=== PATIENT | male | born 1985 | race Caucasian/White ===

== ENCOUNTER 2019-02-23 09:01 | Emergency (ER) | payer OTHER, SELFPAY ==
[2019-02-23 09:06] VITALS: BP 157/108; PULSE 106; RESP 18; TEMP 36.7; O2SAT 100
--- NOTE | 2019-02-23 09:09 | ED.SKABFB ---
HPI - Skin/Abscess/Foreign Bdy General Chief complaint: Skin/Abscess/Foreign Body Stated complaint: Cyst on backside/unable to sit Time Seen by Provider: 02/23/19 09:02 Source: patient Mode of arrival: ambulatory Limitations: no limitations History of Present Illness HPI narrative: Patient is a 33-year-old male here for evaluation of what he states is a cyst on his right buttocks. He states that he has had this in the past several years ago. He was given an antibiotic which he states was penicillin which resolved the symptoms. After period of time being symptom-free the symptoms returned again. He states he was given another course of antibiotics which again resolved the symptoms. This again was several years ago. He reports that this episode is very similar to these 2 prior episodes. He is currently on day 3 of an antibiotic which he states is penicillin but is not exactly sure if this is the name of the medicine that he is on. He comes the emergency department today because he feels like the antibiotics are not working and has quite a bit of pain with sitting. Related Data Home Medications Medication Instructions Recorded Confirmed doxycycline hyclate 100 mg PO BID 02/23/19 02/23/19 Allergies Allergy/AdvReac Type Severity Reaction Status Date / Time No Known Drug Allergies Allergy Verified 02/23/19 09:08 Review of Systems Constitutional Denies fever(s) Gastrointestinal Gastrointestinal: Denies abdominal pain, Denies change in stool character, Denies nausea and Denies vomiting Comments: Cyst on his buttocks Musculoskeletal Denies myalgias and Denies arthralgias Integumentary/Breasts Comments: Redness and swelling to the right buttocks Neurologic Denies behavioral changes Psychiatric Denies behavioral changes Allergic/Immunologic Denies urticaria [facility] Medical History Patient denies medical problems (Acute) Surgical History History of repair of ACL (Acute) Social History Smoking Status: Never smoker Social History Smoking Status: Never smoker Exam Initial Vital Signs Initial Vital Signs: Vital Signs Temperature 98.1 F 02/23/19 09:06 Pulse Rate 106 H 02/23/19 09:06 Respiratory Rate 18 02/23/19 09:06 Blood Pressure 157/108 H 02/23/19 09:06 Pulse Oximetry 100 02/23/19 09:06 Const General: cooperative, comfortable, well developed, well groomed and No acute distress Orientation: alert and awake Resp Effort & Inspection: normal respiratory effort Cardio Rate: tachycardic GI Other: Patient with redness and swelling to the perianal region of the right buttocks Skin Other: Patient with a approximately 10-15 cm area of redness to the right buttocks just lateral to the anus. Does have approximately 1 cm area of abscess on the skin. Has induration. Neuro General: alert and awake Cognition: normal cognition Speech: speech normal Extrem General: normal to inspection and capillary refill normal Psych Appearance: grossly normal and well kempt Procedures Abscess I/D Site: other (Perianal) Side (if applicable): right Sedation/analgesia: none Local Anesthetic: lidocaine 1% Amount of anesthesia used (mL): 6 Technique: incised with #11 blade Irrigation: No Packing used?: iodoform Course Orders Ordered: ED Orders 02/23/19 09:08 CT pelvis w con Stat 02/23/19 09:15 Basic Metabolic Panel Stat Complete Blood Count AUTO DIFF Stat Discontinued Medications Sodium Chloride (Normal Saline 0.9%) 1,000 mls @ 1,000 mls/hr IV BOLUS ONE Stop: 02/23/19 10:07 Last Admin: 02/23/19 09:20 Dose: 1,000 mls/hr Lidocaine HCl (Xylocaine 1% (Pf)) 6 ml INJ NOW ONE Stop: 02/23/19 09:58 Vital Signs - 8 hr 02/23/19 09:06 02/23/19 09:45 Temperature 98.1 F Pulse Rate 106 H 98 H Respiratory Rate 18 16 Blood Pressure 157/108 H Blood Pressure [Right Arm] 139/89 Pulse Oximetry 100 100 MDM - Skin/Abscess/Foreign Bdy Lab Data Attestation: I reviewed the patient's lab results. Result diagrams: 02/23/19 09:15 02/23/19 09:15 Lab Results 02/23/19 02/23/19 Range/Units 09:15 09:15 WBC 13.3 H (4.5-11.0) X10^3/uL RBC 5.07 (4.5-5.9) X10^6/uL Hgb 15.5 (13.5-17.5) g/dL Hct 45.7 (41-53) % MCV 90.3 (80-100) fL MCH 30.5 (26-34) PG MCHC 33.8 (30-36) % RDW 13.2 (11.6-14.8) % Plt Count 157 (150-400) X10^3/uL Neut % (Auto) 77.0 H (50-75) % Lymph % (Auto) 11.8 L (25-40) % [place] % (Auto) 8.9 (3-14) % Eos % (Auto) 2.0 (2-4) % Baso % (Auto) 0.3 (0-2) % Neut # (Auto) 38494 H (6232-9756) /uL Lymph # (Auto) 1600 (3041-3426) /uL [place] # (Auto) 1200 H (0-900) /uL Eos # (Auto) 300 (0-450) /uL Baso # (Auto) 0 (0-100) /uL Sodium 138 (137-145) mmol/L Potassium 5.6 H (3.4-5.1) mmol/L Chloride 103 (98-107) mmol/L Carbon Dioxide 19 L (22-32) mmol/L BUN 12 (9-20) mg/dL Creatinine 0.90 (0.66-1.25) mg/dL Estimated GFR > 60.0 (>60) mL/min BUN/Creatinine Ratio 13.3 (6-22) Glucose 94 (70-100) mg/dL Calcium 9.6 (8.4-10.2) mg/dL Imaging Data CT pelvis: Radiologist's impression: [place] [address] CT Scan Report Signed Patient: Shilo Carnes [facility]#: [id number] : 1985Acct:[id number] Age/Sex: 33 / MDate of Service: 02/23/19 Loc: ED Accession Number: [id number] Procedure: CT pelvis w con Ordering Provider: Fernando Estrada D.O. PROCEDURE: CT PELVIS W CON INDICATIONS: eval for R perianal/rectal abscess TECHNIQUE: After the administration of intravenous contrast, 5 mm thick sections acquired from the iliac crests to the symphysis. 5 mm coronal and sagittal reformats were acquired. For radiation dose reduction, the following was used: automated exposure control, adjustment of mA and/or kV according to patient size. COMPARISON: None. FINDINGS: Image quality: Excellent. Peritoneum and bowel: Bowel loops demonstrate normal wall thickness and caliber. No free fluid or air. Incidental note is made of a normal-appearing appendix. Genitourinary: Bladder wall thickness is normal. Nodes and vessels: No iliac, pelvic, or inguinal adenopathy by size criteria. Iliac vessels demonstrate normal size and enhancement. Bones: No suspicious bony lesions. Miscellaneous: There are bilateral fat containing inguinal hernias. There is a mildly rim enhancing right medial gluteal abscess seen that measures 5.1 x 2.5 cm in greatest axial dimension, with a craniocaudal extent of 6 cm. There is moderate surrounding inflammatory change seen. This abscess is seen within the subcutaneous fat, although there is a portion of the abscess that is seen extending adjacent to the anus, which is demonstrated on series 3 image 46. IMPRESSION: 6 cm medial right gluteal abscess, which extends towards the anus. Incidental note is made of: Bilateral fat containing inguinal hernias Normal appendix Dictated by: Jerel Adamson M.D. on 02/23/2019 at 8:45 Approved by: Jerel Adamson M.D. on 02/23/2019 at 8:48 MDM Narrative Medical decision making narrative: Patient was able to find out that he is currently on doxycycline. He is on day 3 of this. This would be an appropriate antibiotic for an abscess with cellulitis. Patient states he now remembers that he has had another abscess that needed drained on his back several years ago. CT scan does show a gluteal abscess. This was I indeed here in the ER with an abundance amount of purulent material. Packing was placed due to the size of the cavity that was left. It was covered with bandages. Patient is nontoxic appearing. No indication for IV antibiotics. No indication for admission to the hospital. Will have him continue his oral antibiotics. He was given care instructions with regard to the packing and also the bandages. He expressed understanding and agreement with plan. Discharge Plan Departure Patient Disposition: Home Clinical Impression: Abscess of anal and rectal regions Instructions: DI for Anal Abscess, DI for Incision and Drainage of a Skin Abscess Activity Restrictions/Additional Instructions: You need to continue the antibiotic that your currently taking as directed until the medication is gone. Expect some oozing from the incision that we did here in the ER. If it starts to bleed then please return to the emergency department for further evaluation. You can shower like normal using soap and water. You can have bowel movements like normal. When you wipe after a bowel movement tried to take care not to pull out the packing. Try to keep the packing in for the next 48 hours. At that time you can pull it out on her own. Just grabbed the end that is sticking out and pole on it until all of the packing is removed. It should come out in 1 piece. Continue to cover the wound until it quit draining. You can contact [phone] to talk with the health resources coordinator here at the hospital to help establish a primary provider. Return to the emergency department for any new or worsening symptoms Prescriptions: No Action doxycycline hyclate 100 mg Capsule 100 mg PO BID RF: 0
--- NOTE | 2019-02-23 09:12 | ED_ITS ---
HPI - Skin/Abscess/Foreign Bdy General Chief complaint: Skin/Abscess/Foreign Body Stated complaint: Cyst on backside/unable to sit Time Seen by Provider: 02/23/19 09:02 Source: patient Mode of arrival: ambulatory Limitations: no limitations History of Present Illness HPI narrative: Patient is a 33-year-old male here for evaluation of what he states is a cyst on his right buttocks. He states that he has had this in the past several years ago. He was given an antibiotic which he states was penicillin which resolved the symptoms. After period of time being symptom-free the symptoms returned again. He states he was given another course of antibiotics which again resolved the symptoms. This again was several years ago. He reports that this episode is very similar to these 2 prior episodes. He is currently on day 3 of an antibiotic which he states is penicillin but is not exactly sure if this is the name of the medicine that he is on. He comes the emergency department today because he feels like the antibiotics are not working and has quite a bit of pain with sitting. Related Data Home Medications Medication Instructions Recorded Confirmed doxycycline hyclate 100 mg PO BID 02/23/19 02/23/19 Allergies Allergy/AdvReac Type Severity Reaction Status Date / Time No Known Drug Allergies Allergy Verified 02/23/19 09:08 Review of Systems Constitutional Denies fever(s) Gastrointestinal Gastrointestinal: Denies abdominal pain, Denies change in stool character, Denies nausea and Denies vomiting Comments: Cyst on his buttocks Musculoskeletal Denies myalgias and Denies arthralgias Integumentary/Breasts Comments: Redness and swelling to the right buttocks Neurologic Denies behavioral changes Psychiatric Denies behavioral changes Allergic/Immunologic Denies urticaria [facility] Medical History Patient denies medical problems (Acute) Surgical History History of repair of ACL (Acute) Social History Smoking Status: Never smoker Social History Smoking Status: Never smoker Exam Initial Vital Signs Initial Vital Signs: Vital Signs Temperature 98.1 F 02/23/19 09:06 Pulse Rate 106 H 02/23/19 09:06 Respiratory Rate 18 02/23/19 09:06 Blood Pressure 157/108 H 02/23/19 09:06 Pulse Oximetry 100 02/23/19 09:06 Const General: cooperative, comfortable, well developed, well groomed and No acute distress Orientation: alert and awake Resp Effort & Inspection: normal respiratory effort Cardio Rate: tachycardic GI Other: Patient with redness and swelling to the perianal region of the right buttocks Skin Other: Patient with a approximately 10-15 cm area of redness to the right buttocks just lateral to the anus. Does have approximately 1 cm area of abscess on the skin. Has induration. Neuro General: alert and awake Cognition: normal cognition Speech: speech normal Extrem General: normal to inspection and capillary refill normal Psych Appearance: grossly normal and well kempt Procedures Abscess I/D Site: other (Perianal) Side (if applicable): right Sedation/analgesia: none Local Anesthetic: lidocaine 1% Amount of anesthesia used (mL): 6 Technique: incised with #11 blade Irrigation: No Packing used?: iodoform Course Orders Ordered: ED Orders 02/23/19 09:08 CT pelvis w con Stat 02/23/19 09:15 Basic Metabolic Panel Stat Complete Blood Count AUTO DIFF Stat Discontinued Medications Sodium Chloride (Normal Saline 0.9%) 1,000 mls @ 1,000 mls/hr IV BOLUS ONE Stop: 02/23/19 10:07 Last Admin: 02/23/19 09:20 Dose: 1,000 mls/hr Lidocaine HCl (Xylocaine 1% (Pf)) 6 ml INJ NOW ONE Stop: 02/23/19 09:58 Vital Signs - 8 hr 02/23/19 09:06 02/23/19 09:45 Temperature 98.1 F Pulse Rate 106 H 98 H Respiratory Rate 18 16 Blood Pressure 157/108 H Blood Pressure [Right Arm] 139/89 Pulse Oximetry 100 100 MDM - Skin/Abscess/Foreign Bdy Lab Data Attestation: I reviewed the patient's lab results. Result diagrams: 02/23/19 09:15 02/23/19 09:15 Lab Results 02/23/19 02/23/19 Range/Units 09:15 09:15 WBC 13.3 H (4.5-11.0) X10^3/uL RBC 5.07 (4.5-5.9) X10^6/uL Hgb 15.5 (13.5-17.5) g/dL Hct 45.7 (41-53) % MCV 90.3 (80-100) fL MCH 30.5 (26-34) PG MCHC 33.8 (30-36) % RDW 13.2 (11.6-14.8) % Plt Count 157 (150-400) X10^3/uL Neut % (Auto) 77.0 H (50-75) % Lymph % (Auto) 11.8 L (25-40) % [place] % (Auto) 8.9 (3-14) % Eos % (Auto) 2.0 (2-4) % Baso % (Auto) 0.3 (0-2) % Neut # (Auto) 42188 H (4555-9573) /uL Lymph # (Auto) 1600 (4953-3981) /uL [place] # (Auto) 1200 H (0-900) /uL Eos # (Auto) 300 (0-450) /uL Baso # (Auto) 0 (0-100) /uL Sodium 138 (137-145) mmol/L Potassium 5.6 H (3.4-5.1) mmol/L Chloride 103 (98-107) mmol/L Carbon Dioxide 19 L (22-32) mmol/L BUN 12 (9-20) mg/dL Creatinine 0.90 (0.66-1.25) mg/dL Estimated GFR > 60.0 (>60) mL/min BUN/Creatinine Ratio 13.3 (6-22) Glucose 94 (70-100) mg/dL Calcium 9.6 (8.4-10.2) mg/dL Imaging Data CT pelvis: Radiologist's impression: [place] [address] CT Scan Report Signed Patient: Shilo Carnes [facility]#: [id number] : 1985Acct:[id number] Age/Sex: 33 / MDate of Service: 02/23/19 Loc: ED Accession Number: [id number] Procedure: CT pelvis w con Ordering Provider: Fernando Estrada D.O. PROCEDURE: CT PELVIS W CON INDICATIONS: eval for R perianal/rectal abscess TECHNIQUE: After the administration of intravenous contrast, 5 mm thick sections acquired from the iliac crests to the symphysis. 5 mm coronal and sagittal reformats were acquired. For radiation dose reduction, the following was used: automated exposure control, adjustment of mA and/or kV according to patient size. COMPARISON: None. FINDINGS: Image quality: Excellent. Peritoneum and bowel: Bowel loops demonstrate normal wall thickness and caliber. No free fluid or air. Incidental note is made of a normal-appearing appendix. Genitourinary: Bladder wall thickness is normal. Nodes and vessels: No iliac, pelvic, or inguinal adenopathy by size criteria. Iliac vessels demonstrate normal size and enhancement. Bones: No suspicious bony lesions. Miscellaneous: There are bilateral fat containing inguinal hernias. There is a mildly rim enhancing right medial gluteal abscess seen that measures 5.1 x 2.5 cm in greatest axial dimension, with a craniocaudal extent of 6 cm. There is moderate surrounding inflammatory change seen. This abscess is seen within the subcutaneous fat, although there is a portion of the abscess that is seen extending adjacent to the anus, which is demonstrated on series 3 image 46. IMPRESSION: 6 cm medial right gluteal abscess, which extends towards the anus. Incidental note is made of: Bilateral fat containing inguinal hernias Normal appendix Dictated by: Jerel Adamson M.D. on 02/23/2019 at 8:45 Approved by: Jerel Adamson M.D. on 02/23/2019 at 8:48 MDM Narrative Medical decision making narrative: Patient was able to find out that he is currently on doxycycline. He is on day 3 of this. This would be an appropriate antibiotic for an abscess with cellulitis. Patient states he now remembers that he has had another abscess that needed drained on his back several years ago. CT scan does show a gluteal abscess. This was I indeed here in the ER with an abundance amount of purulent material. Packing was placed due to the size of the cavity that was left. It was covered with bandages. Patient is nontoxic appearing. No indication for IV antibiotics. No indication for admission to the hospital. Will have him continue his oral antibiotics. He was given care instructions with regard to the packing and also the bandages. He expressed understanding and agreement with plan. Discharge Plan Departure Patient Disposition: Home Clinical Impression: Abscess of anal and rectal regions Instructions: DI for Anal Abscess, DI for Incision and Drainage of a Skin Abscess Activity Restrictions/Additional Instructions: You need to continue the antibiotic that your currently taking as directed until the medication is gone. Expect some oozing from the incision that we did here in the ER. If it starts to bleed then please return to the emergency department for further evaluation. You can shower like normal using soap and water. You can have bowel movements like normal. When you wipe after a bowel movement tried to take care not to pull out the packing. Try to keep the packing in for the next 48 hours. At that time you can pull it out on her own. Just grabbed the end that is sticking out and pole on it until all of the packing is removed. It should come out in 1 piece. Continue to cover the wound until it quit draining. You can contact [phone] to talk with the health resources coordinator here at the hospital to help establish a primary provider. Return to the emergency department for any new or worsening symptoms Prescriptions: No Action doxycycline hyclate 100 mg Capsule 100 mg PO BID RF: 0
[2019-02-23] MEDS: SODIUM CHLORIDE 0.9% 1,000 ML 1000 ML IV (09:20)
[2019-02-23 09:26] LABS: Add Manual Diff / Slide Review NO; Basophils Absolute Auto 0 /uL (0-100); Basophils Percent Auto 0.3 % (0-2); Eosinophils Absolute Auto 300 /uL (0-450); Hematocrit 45.7 % (41-53); Hemoglobin 15.5 g/dL (13.5-17.5); Lymphocytes Absolute Auto 1600 /uL (1100-4500); Lymphocytes Percent Auto 11.8 % (25-40); Mean Corpuscular HGB Conc 33.8 % (30-36); Mean Corpuscular Hemoglobin 30.5 PG (26-34); Mean Corpuscular Volume 90.3 fL (80-100); Monocytes Absolute Auto 1200 /uL (0-900); Monocytes Percent Auto 8.9 % (3-14); Neutrophils Absolute Auto 10200 /uL (1500-7000); Platelet Count 157 X10^3/uL (150-400); Red Blood Cell Count 5.07 X10^6/uL (4.5-5.9); Red Cell Distribution Width 13.2 % (11.6-14.8); White Blood Cell Count 13.3 X10^3/uL (4.5-11.0)
[2019-02-23 09:42] LABS: BUN Creatinine Ratio 13.3 (6-22); Blood Urea Nitrogen 12 mg/dL (9-20); Calcium 9.6 mg/dL (8.4-10.2); Carbon Dioxide 19 mmol/L (22-32); Chloride 103 mmol/L (98-107); Estimated Glomerular Filt Rate > 60.0 mL/min (>60); Glucose 94 mg/dL (70-100); Sodium 138 mmol/L (137-145)
[2019-02-23 09:43] LABS: HEMOLYSIS 196 (0-50); Potassium 5.6 mmol/L (3.4-5.1)
[2019-02-23 09:45] VITALS: BP 139/89; PULSE 98; RESP 16; O2SAT 100
[2019-02-23] MEDS: LIDOCAINE 1% (PF) INJ 6 ML INJ (10:26)
== END 2019-02-23 10:32 | disposition home or self-care (01) ==
PROVIDERS: Emergency Provider Emergency Medicine
DX: K61.0 Anal abscess (principal); K61.1 Rectal abscess
CPT/HCPCS: 10060; 36591; 72193; 80048; 85025; 96360; 99283; 99284; 99285; Q9967

== ENCOUNTER → 2020-07-08 07:47 | Outpatient (CLI) | payer OTHER, SELFPAY ==
[2020-07-08 08:25] LABS: Bacteria Urine None Seen; RBC Urine None Seen (0-5/HPF)
[2020-07-08 08:46] LABS: Add Manual Diff / Slide Review NO; Basophils Absolute Auto 0 /uL (0-100); Basophils Percent Auto 0.7 % (0-2); Eosinophils Absolute Auto 400 /uL (0-450); Eosinophils Percent Auto 6.5 % (2-4); Hematocrit 44.8 % (41-53); Hemoglobin 15.5 g/dL (13.5-17.5); Lymphocytes Absolute Auto 2200 /uL (1100-4500); Lymphocytes Percent Auto 33.9 % (25-40); Mean Corpuscular HGB Conc 34.5 % (30-36); Mean Corpuscular Hemoglobin 29.5 PG (26-34); Mean Corpuscular Volume 85.6 fL (80-100); Monocytes Absolute Auto 500 /uL (0-900); Monocytes Percent Auto 7.4 % (3-14); Neutrophils Absolute Auto 3300 /uL (1500-7000); Neutrophils Percent Auto 51.5 % (50-75); Platelet Count 169 X10^3/uL (150-400); Red Blood Cell Count 5.24 X10^6/uL (4.5-5.9); White Blood Cell Count 6.5 X10^3/uL (4.5-11.0)
[2020-07-08 09:10] LABS: Alanine Aminotransferase 34 IU/L (<50); Albumin 4.4 g/dL (3.5-5.0); Albumin Globulin Ratio 1.3 (1.0-2.8); Alkaline Phosphatase 67 U/L (38-126); Aspartate Aminotransferase 35 IU/L (17-59); BUN Creatinine Ratio 16.3 (6-22); Bilirubin Total 0.4 mg/dL (0.2-1.3); Blood Urea Nitrogen 15 mg/dL (9-20); Calcium 9.9 mg/dL (8.4-10.2); Carbon Dioxide 29 mmol/L (22-32); Chloride 104 mmol/L (98-107); Cholesterol 216 mg/dL (140-199); Estimated Glomerular Filt Rate > 60.0 mL/min (>60); Globulin 3.3 g/dL (1.7-4.1); Glucose 106 mg/dL (70-100); HDL Cholesterol 55 mg/dL (40-60); HEMOLYSIS < 15 (0-50); LDL Cholesterol Calculated 142 mg/dL (<100); Potassium 4.1 mmol/L (3.4-5.1); Sodium 138 mmol/L (137-145); Total Protein 7.7 g/dL (6.3-8.2); Triglycerides 97 mg/dL (35-150)
[2020-07-08 13:05] LABS: Appearance Urine UA CLEAR; Bilirubin Urine UA NEGATIVE (NEGATIVE); Color Urine UA YELLOW; Glucose Urine UA NEGATIVE (Negative); Ketones Urine UA NEGATIVE (NEGATIVE); Leukocyte Esterase Urine UA NEGATIVE (NEGATIVE); Nitrite Urine UA NEGATIVE (Negative); Occult Blood Urine UA NEGATIVE (Negative); Protein Urine UA NEGATIVE (Negative); Specific Gravity Urine UA 1.025 (1.000-1.035); Urobilinogen Urine UA 0.2 E.U./dL (0.2)
[2020-07-08 13:22] LABS: Culture Indicated Urine Cult Not Indicated; Squamous Epithelial Cell Urine 0-1 /HPF (0-5/HPF); WBC Urine 0-1/HPF (0-5/HPF)
[2020-07-08 14:08] LABS: Hemoglobin A1C% w Est Avg Glu 5.2 % (4.0-6.0)
== END ==
PROVIDERS: PCP Family Medicine; Referring Provider Family Medicine; Visit Provider Family Medicine
DX: Z00.00 Encounter for general adult medical examination without abnormal findings (principal)
CPT/HCPCS: 36415; 80053; 80061; 81001; 83036; 85025

== ENCOUNTER → 2020-10-07 07:47 | Outpatient (CLI) | payer OTHER, SELFPAY ==
[2020-10-07] MEDS: COVID-19 VACC #1, MRNA(MOD) 100 MCG/0.5 ML VIAL IM (07:51)
== END ==
PROVIDERS: PCP Family Medicine; Visit Provider Internal Medicine
DX: Z23 Encounter for immunization (principal)
CPT/HCPCS: 0011A; 91301

== ENCOUNTER → 2020-11-04 07:40 | Outpatient (CLI) | payer OTHER, SELFPAY ==
[2020-11-04] MEDS: COVID-19 VACC #2, MRNA(MOD) 100 MCG/0.5 ML VIAL IM (07:46)
== END ==
PROVIDERS: PCP Family Medicine; Visit Provider Internal Medicine
DX: Z23 Encounter for immunization (principal)
CPT/HCPCS: 0012A; 91301